=== PATIENT | female | born 1955 | race Two or more races ===

== ENCOUNTER 2024-05-09 01:06 | Emergency (ER) | payer OTHER ==
[2024-05-09 01:16] VITALS: BP 121/72; PULSE 96; RESP 18; TEMP 99.5; BMI 37.8
[2024-05-09] MEDS ORDERED: AZITHROMYCIN 500 MG TABLET ONE (01:21)
[2024-05-09] MEDS: AZITHROMYCIN 500 MG TABLET PO ONE (01:29)
== END 2024-05-09 01:37 | disposition home or self-care (01) ==
LOC: FER 01:06
DX: R05.9 Cough, unspecified (principal); R50.9 Fever, unspecified
CPT/HCPCS: 99283-25